=== PATIENT | female | born 1990 | race Caucasian/White ===

== ENCOUNTER 2018-10-22 00:04 | Inpatient (IN) ==
[2018-10-22] MEDS ORDERED: MEPERIDINE 50 MG/1 ML VIAL IV PRN (00:26)
[2018-10-22] MEDS ORDERED: BUTORPHANOL 2 MG/ML VIAL IV PRN (00:26)
[2018-10-22 01:02] LABS: Basophils # 0.1 10*3/uL (0.0-0.2); Basophils % 0.5 % (0.0-0.8); Eosinophils # 0.3 10*3/uL (0.0-0.87); Eosinophils % 1.7 % (0.00-10.9); Hematocrit 26.8 VOL% (35.7-47.0); Hemoglobin 7.8 GM/DL (12.0-16.0); Immature Granulocytes % 1.9 %; Immature Granulocytes Absolute 0.29 #; Lymphocytes # 2.6 10*3/uL (1.4-4.0); Lymphocytes % 16.6 % (21.3-54.2); Mean Corpuscular HGB Conc 29.1 GM/DL (32-36); Mean Corpuscular Volume 67.2 FL (87-102); Mean Platelet Volume 9.7 FL (9.6-12.0); NRBC # 0.02 10*3/uL; Neutrophils % 73.3 % (38.7-73.9); Platelet Count 316 T/CUMM (130-400); Red Blood Count 3.99 MC/CUMM (3.8-5.5); Red Cell Distribution Width 17.2 % (9.3-17.3); White Blood Count 15.5 T/CUMM (4-12)
[2018-10-22 01:21] LABS: Alanine Aminotransferase < 9 U/L (13-56); Albumin 2.4 G/DL (3.4-5.0); Alkaline Phosphatase 216 U/L (45-117); Aspartate Amino Transferase 8 U/L (0-37); Blood Urea Nitrogen 5 MG/DL (7-18); Calcium 8.3 MG/DL (8.5-10.1); Glucose 84 MG/DL (74-106); Osmolality,Calculated 270.7 MOS/KG (273-304); Total Protein 6.3 G/DL (6.4-8.3)
[2018-10-22] MEDS: LACTATED RINGERS 1,000 ML IV SCH ×3 (01:50→12:59)
[2018-10-22] MEDS: ONDANSETRON 4 MG/2 ML VIAL IV PRN ×2 (04:03→10:29)
[2018-10-22] MEDS ORDERED: PROMETHAZINE 25 MG/1 ML VIAL IM ONE (05:24)
[2018-10-22] MEDS ORDERED: CITRIC ACID/SODIUM CITRATE 30 ML UDCUP PO ONE (05:24)
[2018-10-22] MEDS ORDERED: ePHEDrine 50 MG/ML AMP IV PRN (05:24)
[2018-10-22] MEDS ORDERED: FAMOTIDINE 20 MG/2 ML VIAL IV ONE (05:24)
[2018-10-22] MEDS ORDERED: diphenhydrAMINE 50 MG/1 ML VIAL IV PRN (05:24)
[2018-10-22] MEDS ORDERED: NALOXONE 0.4 MG/ML VIAL IV PRN (05:24)
[2018-10-22] MEDS: fentaNYL 2 MCG/ROPIV 0.2% EPID 100 ML EPIDURAL SCH (08:24)
[2018-10-22 09:22] LABS: Apearance,Urine CLEAR (Clear); Bilirubin,Urine Negative (Negative); Blood, Urine Negative (Negative); Glucose,Urine (UA) Negative (Negative); Ketones,Urine Negative (Negative); Mucus,Urine Many /LPF (Occasional); Nitrite,Urine Negative (Negative); Protein,Urine Negative; RBC,Urine 1 /HPF (0-4); Squamous Epithelial Cell,Urine Occasional /HPF (0-10); Urine Color Yellow (Yellow); Urine Specific Gravity 1.017 (1.001-1.035); WBC,Urine 3 /HPF (0-6)
[2018-10-22] MEDS ORDERED: TERBUTALINE 1 MG/1 ML VIAL SUBCUT ONE ×2 (10:18→10:21)
[2018-10-22] MEDS ORDERED: CARBOPROST TROMETHAMINE 250 MCG/ML AMP IM ONE (12:08)
[2018-10-22] MEDS ORDERED: METHYLERGONOVINE 0.2 MG/1 ML AMP ONE (12:08)
[2018-10-22] MEDS ORDERED: miSOPROStol 200 MCG TABLET ONE (12:08)
[2018-10-22] MEDS ORDERED: OXYTOCIN/LR 20 UNIT/1,000 ML BAG IV ONE ×3 (12:08→21:10)
[2018-10-22] MEDS ORDERED: LIDOCAINE 1% 50 ML VIAL ONE (12:10)
[2018-10-22] MEDS ORDERED: OXYTOCIN/LR 20 UNIT/1,000 ML BAG IV SCH (13:13)
[2018-10-22] MEDS ORDERED: IBUPROFEN 800 MG TABLET PO ONE (17:16)
[2018-10-22] MEDS ORDERED: HYDROCORTISONE 2.5% RECTAL CREAM 30 GM TUBE TOP PRN (19:24)
[2018-10-22] MEDS ORDERED: DIPH/TET/ACEL PERT BOOSTER VACCINE 0.5 ML VIAL IM ONE (19:24)
[2018-10-22] MEDS ORDERED: MEASLES/MUMPS/RUBELLA VACCINE 0.5 ML VIAL SUBCUT ONE (19:24)
[2018-10-22] MEDS ORDERED: BISACODYL 10 MG SUPP RECTAL PRN (19:24)
[2018-10-22] MEDS ORDERED: WITCH HAZEL PADS 100/JAR TOP PRN (19:24)
[2018-10-22] MEDS ORDERED: ACETAMINOPHEN 325 MG TABLET PO PRN (19:24)
[2018-10-22] MEDS ORDERED: LANOLIN 50% CREAM 0.3 OZ TUBE TOP PRN (19:24)
[2018-10-22] MEDS ORDERED: RHO(D) IMMUNE GLOBULIN 300 MCG SYRINGE IM ONE (19:24)
[2018-10-22] MEDS ORDERED: BENZOCAINE 20%/MENTHOL 0.5% SPRAY 56 GM CAN TOP PRN (19:24)
[2018-10-22] MEDS: oxyCODONE/ACETAMINOPHEN 5-325 MG TABLET PO PRN (19:30)
[2018-10-22] MEDS: DOCUSATE SODIUM 100 MG CAPSULE PO SCH (21:59)
[2018-10-22] MEDS ORDERED: FERROUS SULFATE 325 MG TABLET PO SCH (22:30)
[2018-10-23] MEDS: IBUPROFEN 800 MG TABLET PO PRN ×4 (00:05→19:32)
[2018-10-23] MEDS: oxyCODONE/ACETAMINOPHEN 5-325 MG TABLET PO PRN ×4 (01:16→19:32)
[2018-10-23] MEDS: LACTATED RINGERS 1,000 ML IV SCH (04:38)
[2018-10-23] MEDS: fentaNYL 2 MCG/ROPIV 0.2% EPID 100 ML EPIDURAL SCH (04:39)
[2018-10-23] MEDS: DOCUSATE SODIUM 100 MG CAPSULE PO SCH ×3 (07:43→20:00)
[2018-10-23 07:53] LABS: Basophils # 0.1 10*3/uL (0.0-0.2); Basophils % 0.4 % (0.0-0.8); Eosinophils # 0.2 10*3/uL (0.0-0.87); Eosinophils % 1.1 % (0.00-10.9); Hemoglobin 7.4 GM/DL (12.0-16.0); Immature Granulocytes % 0.8 %; Immature Granulocytes Absolute 0.15 #; Lymphocytes # 2.5 10*3/uL (1.4-4.0); Lymphocytes % 13.8 % (21.3-54.2); Mean Corpuscular HGB Conc 28.5 GM/DL (32-36); Mean Corpuscular Volume 67.4 FL (87-102); Mean Platelet Volume 10.2 FL (9.6-12.0); Monocytes % 5.8 % (1.7-12.7); Neutrophils % 78.1 % (38.7-73.9); Platelet Count 262 T/CUMM (130-400); Red Blood Count 3.86 MC/CUMM (3.8-5.5); Red Cell Distribution Width 17.1 % (9.3-17.3); White Blood Count 17.9 T/CUMM (4-12)
[2018-10-23] MEDS: FERROUS SULFATE 325 MG TABLET PO SCH ×3 (08:16→20:00)
[2018-10-23 08:18] LABS: Hypochromasia 1+; Platelet Estimate Adequate
[2018-10-23] MEDS ORDERED: SODIUM CHLORIDE 0.9% 1,000 ML IV PRN (09:14)
[2018-10-23 18:41] LABS: Hematocrit 28.1 VOL% (35.7-47.0); Hemoglobin 8.5 GM/DL (12.0-16.0)
[2018-10-23 19:06] LABS: Bilirubin,Total 0.8 MG/DL (0.2-1.0); Calcium 8.1 MG/DL (8.5-10.1); Osmolality,Calculated 281.1 MOS/KG (273-304); Total Protein 5.7 G/DL (6.4-8.3)
[2018-10-24] MEDS: oxyCODONE/ACETAMINOPHEN 5-325 MG TABLET PO PRN ×2 (01:44→08:13)
[2018-10-24 07:15] LABS: Basophils # 0.1 10*3/uL (0.0-0.2); Basophils % 0.6 % (0.0-0.8); Eosinophils # 0.2 10*3/uL (0.0-0.87); Eosinophils % 1.9 % (0.00-10.9); Hematocrit 29.6 VOL% (35.7-47.0); Immature Granulocytes % 1.5 %; Immature Granulocytes Absolute 0.19 #; Lymphocytes # 2.3 10*3/uL (1.4-4.0); Lymphocytes % 18.6 % (21.3-54.2); Mean Corpuscular HGB Conc 30.4 GM/DL (32-36); Mean Corpuscular Volume 70.8 FL (87-102); Mean Platelet Volume 9.5 FL (9.6-12.0); Monocytes % 5.2 % (1.7-12.7); Neutrophils % 72.2 % (38.7-73.9); Platelet Count 214 T/CUMM (130-400); Red Blood Count 4.18 MC/CUMM (3.8-5.5); Red Cell Distribution Width 18.9 % (9.3-17.3); White Blood Count 12.4 T/CUMM (4-12)
[2018-10-24 07:24] VITALS: BP 120/76
[2018-10-24] MEDS: DOCUSATE SODIUM 100 MG CAPSULE PO SCH (08:12)
[2018-10-24] MEDS: FERROUS SULFATE 325 MG TABLET PO SCH (08:12)
[2018-10-24] MEDS: IBUPROFEN 800 MG TABLET PO PRN (08:12)
== END 2018-10-24 13:30 | disposition home or self-care (01) | DRG 560 ==
LOC: N.LDOUT 00:04 → N.LD 00:11 → N.OB 21:38
PROVIDERS: ADMIT Obstetrics & Gynecology; ATTEND Obstetrics & Gynecology